=== PATIENT | female | born 1970 | race Two or more races ===

== ENCOUNTER 2022-05-21 18:23 | Emergency (ER) | payer SELFPAY ==
[2022-05-21 19:08] VITALS: BP 136/82
[2022-05-21] MEDS ORDERED: TERB1CRE32 TOP (20:25)
[2022-05-21] MEDS ORDERED: FLUC150T2 PO (20:25)
== END 2022-05-21 20:42 | disposition home or self-care (01) ==
LOC: ER 18:23
DX: B37.31 Acute candidiasis of vulva and vagina (principal); B35.4 Tinea corporis; F17.210 Nicotine dependence, cigarettes, uncomplicated; F12.90 Cannabis use, unspecified, uncomplicated; Z98.890 Other specified postprocedural states